=== PATIENT | male | born 1945 | race Caucasian/White ===

== ENCOUNTER → 2018-01-06 | Outpatient (CLI) | payer OTHER ==
--- NOTE | 2018-01-07 08:49 | RSPPFT ---
DATE OF PROCEDURE: 01/06/18 COMMENTS: VOLUMES DYNAMIC: FVC and FEV1 moderately reduced. STATIC: TLC, FRC and RV severely reduced. FLOWS: FEV1% normal; FEF 25-75 mildly reduced, DIFFUSION: Severely reduced. FLOW VOLUME LOOP: Restrictive configuration with terminal airflow obstruction. IMPRESSION: Severe restrictive ventilatory defect with a severe reduction in diffusion. There is no significant airways obstruction. There is no improvement post-bronchodilator.
== END ==
LOC: HRSP 08:53
PROVIDERS: ATTEND Internal Medicine
DX: J84.112 Idiopathic pulmonary fibrosis (principal)
CPT/HCPCS: 36600; 82805; 94060; 94618; 94726; 94729; 95012